=== PATIENT | female | born 1985 | race Hispanic/Latino ===

== ENCOUNTER 2019-10-21 20:18 | Emergency (ER) | payer MEDICAID, OTHER | END 2019-10-21 21:00 | disposition home or self-care (01) | LOC: ERS 20:18 | DX: B02.9 Zoster without complications (principal) | CPT/HCPCS: 99282 ==

== ENCOUNTER 2020-02-01 15:45 | Day surgery (SDC) | payer MEDICAID, OTHER ==
[2020-02-01 16:35] VITALS: BMI 27.8
[2020-02-01 17:17] VITALS: BP 116/63; TEMP 98.8
[2020-02-01] MEDS ORDERED: hydrALAZINE 20 MG/ML VIAL SLOW IVP PRN (17:37)
--- NOTE | 2020-02-01 17:38 | PDOC.FPROB ---
FMR OB H&P: HPI - History of Present Illness Chief Complaint: CTX, Possible LOF Indentification: @ 38.1W EGA by LMP, c/w 10.1W US History of Present Illness: Patient is a 34 y/o at 38.1W EGA by LMP c/w 10.1W US who presents to L& D for evaluation for contractions and possible loss of fluid. Patient states that at 0400 this AM she felt a strong contraction and noticed a small amount of lost fluid. Patient states that the contraction felt similar to her labor contractions on her previous pregnancies, and stated that the loss of fluid was mildly bloody but minimal. However, she stated that she experienced several more episodes of similar loss of fluid throughout the day. Since 0400, patient states that her contractions have occurred Q1H and are getting more painful in nature. Per the patient and chart review, patient's has been complicated by Polyhydramnios (9.4 cm at 34.6W) that has since resolved, and possible LGA. 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 Patient denies loss of movement, fevers, chills, N/V/D, cough, recent travel, known COVID-19 exposure, CUETO, visual disturbances, auditory disturbances, rhinorrhea, epistaxis, chest pain, SOB, dysuria, hematuria, new-onset rashes or lesions, diarrhea, bloody stools or recent trauma. Patient's was present at bedside during the evaluation. Additionally, patient is [place]-speaking only and an buggy runner had to be used for the majority of the evaluation. Primary Care Physician: [facility] - Dr. 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 - Family History Family History: Non-Contributory FMR OB H&P: Medications - Current Home Medications: Medication Instructions Recorded Confirmed Type Vitamin 1 tab PO DAILY 02/01/16 02/01/16 History valACYclovir [ValTRex] 500 mg PO DAILY 02/01/20 02/01/20 History Allergies/Adverse Reactions: Allergies Allergy/AdvReac Type Severity Reaction Status Date / Time No Known Allergies Allergy Verified 02/01/20 16:32 FMR OB H&P: ROS - Review of Systems General: reports: fatigue. denies: fever/chills, recent trauma Eyes: denies: vision changes, double vision, scotomas, floaters ENT: denies: rhinorrhea, frequent nose bleed, ear pain, sore throat Cardiovascular: denies: chest pain, palpitation, edema Respiratory: denies: cough, shortness of breath Gastrointestinal: denies: nausea, vomiting, diarrhea, constipation, bright red blood Genitourinary (Female): reports: vaginal discharge, vaginal bleeding, contractions. denies: dysuria, hematuria, polyuria, vaginal pain, vaginal mass/ sore, vaginal pressure Musculoskeletal: denies: pain, stiffness, arthritis/arthralgias Neurologic: denies: syncope, seizures, loss of counsciousness Integumentary: denies: itching, rash, lesions FMR OB H&P: Vital Signs - Maternal Vital signs: Vital Signs - First Documented Temp Pulse Resp BP Pulse Ox 98.8 F 80 18 116/63 98 02/01/20 16:16 02/01/20 16:16 02/01/20 16:16 02/01/20 16:16 02/01/20 16:16 - Heart Tones Baseline: 130 Variability: moderate Acceleration: present Deceleration: absent [place] contractions every: Q20M FMR OB H&P: A/P - Problem List (1) Advanced maternal age (AMA) in Status: Acute Code(s): [id number] - (2) Status: Acute (3) HSV (herpes simplex virus) infection Status: Acute Code(s): B00.9 - HERPESVIRAL INFECTION, UNSPECIFIED (4) Shingles Status: Acute Code(s): B02.9 - ZOSTER WITHOUT COMPLICATIONS (5) Latent tuberculosis Status: Acute Disposition: Patient is a 34 y/o female at 38.1W EGA by LMP - c/w 10.1W US - who presents to L&D for evaluation of contractions and subjective loss of fluid. 1. Contractions / Possible SROM -Patient's contractions are painful but infrequent, few noted on monitor while on L&D -Patient is [place]-speaking only and true etiology of LOF is unclear -MVSS w/o severe-range pressures -FHTs in the 130s w/ acels -SVE (1645): /-2 -Amniosure: Pending -Plan for additional SVE in 2H followed by Spec Exam 2. SIUP -Adequate dating criteria - appropriate and consistent care throughout -HepB, RPR, GC/CT, HIV - negative -1H GTT: 94 -TSH: 0.42 (Lower Limit of Normal) -All vaccinations up to date 3. HSV Infection -Patient states that she has been taking Valtrex prophylactically since 36W EGA -No active vulvar lesions per the patient and nursing staff 4. Hx of Shingles -Resolved -Will continue to monitor for additional 5. Advanced Maternal Age PCP: JAMESON Olivera Dispo: Patient is currently stable on L&D for a Labor Check. Plan to perform Amniosure, SVE and Spec Exam as per above in 2H. Alter plan as needed and consider IOL based on positive findings. Discussion: Date/Time: 02/01/201737 This H&P was discussed with [] and [] who agree with the above documentation and plan. Addendum - Attending - Attending Attestation Date/Time: 02/01/202149 I personally evaluated the patient and discussed the management with Dr. Martinez. I agree with the History, Examination, Assessment and Plan documented above.
[2020-02-01 18:04] LABS: Amnisure Test No Membranes Rupture (No Rupture)
[2020-02-01 18:05] LABS: Amnisure Internal Control QC ACCEPTABLE (ACCEPTABLE)
--- NOTE | 2020-02-01 19:05 | PDOC.BPN ---
<Trey Silva - Last Filed: 02/01/20 19:00> - Brief Progress Note Pt is a 34 yo who presented for possible SROM and contracton: # Contractions and Possible SROM Amnisure negative. No change on repeat cervical check. Negative sterile speculum exam, no pooling, no fluid leakage with increased abdominal pressure. Category 1 strip. Contractions spaced out. - return precautions given - discharge to home - follow up for eIOL - follow up with PCP as directed # SIUP -Adequate dating criteria - appropriate and consistent care throughout -HepB, RPR, GC/CT, HIV - negative -1H GTT: 94 -TSH: 0.42 (Lower Limit of Normal) -All vaccinations up to date # HSV Infection -Patient states that she has been taking Valtrex prophylactically since 36W EGA -No active vulvar lesions per the patient and on exam # Hx of Shingles -Resolved -Will continue to monitor for additional # Advanced Maternal Age PCP: JAMESON Olivera Dispo: discharge to home <Anderson Golden - Last Filed: 02/01/20 21:52> Addendum - Attending - Attending Attestation Date/Time: 02/01/20 4659 I personally evaluated the patient and discussed the management with Dr. Yang. I agree with the History, Examination, Assessment and Plan documented above.
== END 2020-02-01 19:10 | disposition home health service (06) ==
LOC: L&D/OP 15:45
PROVIDERS: ATTEND Obstetrics & Gynecology
DX: O09.523 Supervision of elderly multigravida, third trimester (principal); O47.1 False labor at or after 37 completed weeks of gestation; O98.513 Other viral diseases complicating pregnancy, third trimester; O98.013 Tuberculosis complicating pregnancy, third trimester; B00.9 Herpesviral infection, unspecified; B02.9 Zoster without complications; Z3A.38 38 weeks gestation of pregnancy
CPT/HCPCS: 84112

== ENCOUNTER 2020-02-01 21:50 | Inpatient (IN) | payer OTHER, SELFPAY ==
[~2020-02-01 21:50] MED LIST: Bupivacaine/Epinephrine 0.25% 30 ML VIAL ONE
[2020-02-01 22:10] VITALS: BMI 27.8
--- NOTE | 2020-02-01 22:35 | PDOC.FPROB ---
FMR OB H&P: HPI - History of Present Illness Chief Complaint: Contractions Indentification: at 38.1 wks by LMP/10 wk sono History of Present Illness: Patient is a 34 y/o at 38.1W EGA by LMP c/w 10.1W US who presents to L& D for evaluation for contractions. She was discharged a few hours ago when evaluated for possible SROM/contractions but pt had no change at the time, negative sterile speculum exam. Pt now complains of contractions every 1-2 mins , painful, denies ROM, bleeding. She does have history of HSV but has been taking anti-virals, no lesions on sterile speculum exam this morning. She would like an epidural. JAMESON - Jarod FMR OB H&P: Current - Care : 4 Para: 3003 Gestational age: 38.1 Due date: 02/15/20 Dating Criteria: LMP c/w 10 wk sono Course/Complications: LGA Fetus, Anemia of , HSV-1 w/o active lesions taking prophylaxis anti -virals, AMA - OB Labs Blood type: O RH: positive Antibody Screen: negative HIV: negative RPR: negative HepBsAg: negative Rubella: immune Quad screen: negative Urine drug screen: not done Gonorrhea: negative Chlamydia: negative Pap Smear: 2019 - NILM 1 hour gtt: 94 GBS: negative H&H: 11.5 Platelets: 220 FMR OB H&P: History - Past Medical History PMH: HSV-1, Latent TB - OB History OB History: Polyhydramnios - resolved; LGA - 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; 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 - Surgical History Sx History: None - Social History Social History: Denies Tobacco, alcohol, drug use - Family History Family History: Non-contributory FMR OB H&P: Medications - Current Home Medications: Medication Instructions Recorded Confirmed Type Vitamin 1 tab PO DAILY 02/01/16 02/01/20 History valACYclovir [ValTRex] 500 mg PO DAILY 02/01/20 02/01/20 History Allergies/Adverse Reactions: Allergies Allergy/AdvReac Type Severity Reaction Status Date / Time No Known Allergies Allergy Verified 02/01/20 22:10 FMR OB H&P: ROS - Review of Systems General: denies: fever/chills, weight/appetite/sleep changes Eyes: denies: eye pain, vision changes ENT: denies: nasal congestion, rhinorrhea Cardiovascular: denies: chest pain, palpitation, edema Respiratory: denies: cough, congestion Gastrointestinal: denies: abdominal pain, indigestion Genitourinary (Female): reports: vaginal discharge, contractions, vaginal pressure Musculoskeletal: denies: pain, stiffness Neurologic: denies: numbness, syncope Integumentary: denies: itching, rash Hematologic/Lymphatic: denies: prolonged or excessive bleeding Psychological: denies: depression, anxiety FMR OB H&P: Vital Signs - Heart Tones Baseline: 130 Variability: moderate Acceleration: present Deceleration: absent Category: category 1 [place] contractions every: q1-3 mins FMR OB H&P: Physical Exam - Physical Exam General: awake, alert and oriented Deviation from normal: painful contractions HEENT: PERRLA, EOMI, MMM Neck: trachea midline, no JVD Heart: RRR, normal S1/S2 General: CTAB, no respiratory distress, good air movement, no wheezing Abdomen: soft, gravid, non-tender Musculoskeletal: pulses present, FROM in all four extremities Neurological: cranial nerves II through XII intact, sensation to pain,touch and proprioception grossly normal Skin: good tugor, capillary refill <2 seconds Lymphatic: no purpura, no petechia Psychiatric: intact recent and remote memory, normal mood and affect - Pelvic Exam SVE: Membranes: intact Presentation: cephalic FMR OB H&P: A/P - Problem List (1) Advanced maternal age (AMA) in Current Visit: No Status: Acute Code(s): [id number] - (2) HSV (herpes simplex virus) infection Current Visit: No Status: Acute Code(s): B00.9 - HERPESVIRAL INFECTION, UNSPECIFIED (3) Latent tuberculosis Current Visit: No Status: Acute (4) Current Visit: No Status: Acute Disposition: Pt is a at 38.1 weeks dated by LMP c/w 10 weeks sono who presents in active labor: # Active Labor # Intrauterine - SVE: , cephalic presentation on exam; Cat 1 strip - q2h checks - epidural desired - labs from earlier today, repeat Type and Screen # Hx of HSV-1 - no lesions on exam - continue prophylactic Valtrex # GBS Negative # Advanced Maternal Age # Hx of Shingles - resolved # Hx of Latent TB Dispo: admit for active labor Discussion: Date/Time: 02/01/202234 This H&P was discussed with Dr. Valle and Dr. Bear who agree with the above documentation and plan. Addendum - Attending - Attending Attestation Date/Time: 02/01/20 8546 I personally evaluated the patient and discussed the management with Dr. Silva I agree with the History, Examination, Assessment and Plan documented above with any addition or exceptions noted below. Presents in active labor. Desires epidural. Will place epidural and AROM.
[2020-02-01] MEDS ORDERED: Lidocaine 1% (PF) 30 ML VIAL SC PRN (22:49)
[2020-02-01] MEDS ORDERED: Methylergonovine 0.2 MG/ML VIAL IM PRN (22:49)
[2020-02-01] MEDS ORDERED: Misoprostol 200 MCG TAB PR PRN (22:49)
[2020-02-01] MEDS ORDERED: Ibuprofen 800 MG TAB PO PRN (22:49)
[2020-02-01] MEDS ORDERED: Carboprost 250 MCG/ML AMP IM PRN (22:49)
[2020-02-01] MEDS ORDERED: hydrALAZINE 20 MG/ML VIAL SLOW IVP PRN (22:51)
[2020-02-01] MEDS ORDERED: Ondansetron PF 4 MG/2 ML Vial IVP PRN (22:51)
[2020-02-01] MEDS ORDERED: Docusate 100 MG CAP PO PRN (22:51)
[2020-02-01] MEDS ORDERED: Promethazine HCl 25 MG/ML VIAL IM PRN (22:51)
[2020-02-01] MEDS ORDERED: Lactated Ringer's 1,000 ML IV SCH (23:00)
[2020-02-01] MEDS ORDERED: Fentanyl 4 mcg/Bup 0.1% Cadd 100 ML ONE (23:03)
[2020-02-02 00:04] LABS: HIV (1/2) Antibody/Antigen Non-Reactive (NonReactive); HIV 1/2 INDEX 0.12 S/CO (<1.00)
[2020-02-02] MEDS ORDERED: Promethazine HCl 25 MG/ML VIAL IM PRN (00:11)
[2020-02-02] MEDS ORDERED: Lactated Ringer's 500 ML IV PRN (00:11)
[2020-02-02] MEDS ORDERED: Ondansetron PF 4 MG/2 ML Vial IVP PRN ×2 (00:11→04:55)
[2020-02-02] MEDS ORDERED: Naloxone HCl 0.4 mg/ml Vial IVP PRN ×2 (00:11)
[2020-02-02] MEDS ORDERED: EPHEDRINE 25 MG/5 ML SYRINGE SLOW IVP PRN (00:11)
[2020-02-02] MEDS ORDERED: Acetaminophen 325 MG TAB PO PRN (00:11)
[2020-02-02] MEDS ORDERED: diphenhydrAMINE 50 MG/ML VIAL IVP PRN (00:11)
[2020-02-02] MEDS ORDERED: Fentanyl 4 mcg/Bupivacaine 0.1% Cassette 100 ML EPIDURAL SCH (00:15)
[2020-02-02] MEDS ORDERED: Communication Order-Pharmacy FS SCH (00:15)
--- NOTE | 2020-02-02 00:16 | PDOC.LDPN ---
Labor & Delivery Progress Note - Subjective Subjective: comfortable - Objective Vital signs reviewed and normal: yes General: NAD, resting Uterine fundus: non tender SVE: FHT: category 1, variability present [place] contractions every: q3 mins AROM: meconium stained fluid - Assessment (1) Advanced maternal age (AMA) in Code(s): [id number] - Current Visit: No Status: Acute (2) HSV (herpes simplex virus) infection Code(s): B00.9 - HERPESVIRAL INFECTION, UNSPECIFIED Current Visit: No Status : Acute (3) Latent tuberculosis Current Visit: No Status: Acute (4) Current Visit: No Status: Acute Plan: continue plan of care -: Pt is a at 38.1 weeks dated by LMP c/w 10 weeks sono who presents in active labor: # Active Labor # Intrauterine - SVE: , cephalic presentation on exam; Cat 1 strip - AROM at 0010 on 02/02/20 - q2h checks - epidural desired # Hx of HSV-1 - no lesions on exam - continue prophylactic Valtrex # GBS Negative # Advanced Maternal Age # Hx of Shingles - resolved # Hx of Latent TB Dispo: admit for active labor
[2020-02-02] MEDS: NS / Oxytocin 40 units/1000ml 1,000 ML IV PRN ×2 (02:36→03:56)
--- NOTE | 2020-02-02 02:55 | PDOC.OPDEL ---
OB Operative/Delivery Note Delivery Dr/Surgeon: Tori/Jarod/Ricardo Pre-Delivery Diagnosis: active labor Procedure/Post Delivery Dx: spontaneous vaginal delivery Anesthesia: epidural - Findings A Sex: female Weight: 3.57 kg - 1 min: 7 - 5 min: 9 - Additional Findings/Plan Placenta delivered: spontaneous Repaired Obstetrical Laceration: none Estimated blood loss: QBL 75 Compilations/Other Findings: Delivering Physician Attending Procedure: Spontaneous Vaginal Delivery Anesthesia: epidural, Local for Repair QBL: 75 ml Pre-op Diagnosis: 1. Term intrauterine in labor 2. AMA 3. Hx of HSV - 1 w/o active lesions 4. Anemia of Post-op Diagnosis: 1. Term intrauterine , delivered 2. Same as Above Indications: A 34 y/o female G4 now P4004 presents in active labor Delivery Note: This is 34 yo F G4 now P4004 @ 38.2 wks who delivered a viable F at 0233 on 02/02/20. Following an uneventful antepartum course, a vigorous F was delivered over an intact perineum in the L occipitoanterior position. Anterior Shoulder and then remainder of the body delivered. No nuchal cord. The head was held down and mouth and nares were bulb suctioned. Cord clamped and cut and cord blood collected. Placenta delivered intact in the Chang presentation with a 3 vessel cord noted. Fundal massage was performed and the fundus was firm. The cervix and vagina were inspected and found to be free of lacerations. Infant went to nursery in good condition for routine care. Apgars were 7/9 at 1 & 5 minutes, respectively. Patient tolerated delivery well and went to after routine recovery/care. Post delivery plan: routine recovery Addendum - Attending - Attending Attestation Date/Time: 02/03/20 0113 I was present for the entire delivery and agree with the above documentation.
[2020-02-02] MEDS ORDERED: Lanolin Ointment 7 GM TUBE TOP PRN (04:55)
[2020-02-02] MEDS ORDERED: Adacel (T-DAP) 0.5 ML SYRINGE IM ONE (04:55)
[2020-02-02] MEDS ORDERED: Milk Of Magnesia 30 ML UDCUP PO PRN (04:55)
[2020-02-02] MEDS ORDERED: hydrALAZINE 20 MG/ML VIAL SLOW IVP PRN (04:55)
[2020-02-02] MEDS ORDERED: Bisacodyl 10 MG SUPP PR PRN (04:55)
[2020-02-02] MEDS ORDERED: NS / Oxytocin 40 units/1000ml 1,000 ML IV SCH (04:55)
[2020-02-02 05:10] LABS: Syphilis Antibody Nonreactive (Nonreactive); Syphilis Antibody Index 0.02 S/CO (<1.00 Non-Reactive)
[2020-02-02 05:11] LABS: HBSAg Index 0.24 S/CO (0-0.99); Hep B Surf Ag Non-Reactive S/CO (NonReactive)
[2020-02-02] MEDS: Ibuprofen 800 MG TAB PO SCH ×3 (06:08→23:01)
--- NOTE | 2020-02-02 06:18 | PDOC.OBPPN ---
FMR OB PN: Obj - Maternal Vital signs: BP: [] HR: [] RR: [] Tmax: [] Pox: []% on [] Wt: [] - Urine output I&O: 01/31/20 02/01/20 02/02/20 06:59 06:59 06:59 Output Total 135 Balance -135 FMR OB PN: Data - Labs Lab results: Laboratory Results - last 24 hr 02/01/20 02/01/20 02/02/20 23:08 23:08 03:42 Syphilis IgG/IgM Ab Hep Bs Antigen Non-Reactive HIV 1&2 Antigen & Ab Non-Reactive Blood Type O POSITIVE Antibody Screen NEGATIVE 02/02/20 03:42 Syphilis IgG/IgM Ab Nonreactive Hep Bs Antigen HIV 1&2 Antigen & Ab Blood Type Antibody Screen FMR OB PN: A/P - Problem List (1) Advanced maternal age (AMA) in Current Visit: No Status: Acute Code(s): [id number] - (2) HSV (herpes simplex virus) infection Current Visit: No Status: Resolved Code(s): B00.9 - HERPESVIRAL INFECTION, UNSPECIFIED (3) Latent tuberculosis Current Visit: No Status: Chronic (4) Current Visit: No Status: Resolved (5) Shingles Current Visit: No Status: Resolved Code(s): B02.9 - ZOSTER WITHOUT COMPLICATIONS Disposition: Patient is a 34 y/o female who delivered a TAGAF via at 0233 on 02/02/20. 1. SIUP, resolved -TAGAF delivered LOP w/ APGARs of 7, 9 -3 vessel cord -No lacerations noted in delivery op-note -HepB, RPR, GC/CT, HIV - negative -1H GTT: 94 -TSH: 0.42 (Lower Limit of Normal) -All vaccinations up to date 2. Hx of HSV Infection -Patient states that she has been taking Valtrex prophylactically since 36W EGA -No active vulvar lesions per the patient and nursing staff 3. Hx of Shingles -Resolved -Will continue to monitor for additional 4. Advanced Maternal Age PCP: PNC - Jarod Dispo: Patient is currently stable on L&D for a Labor Check. Plan to perform Amniosure, SVE and Spec Exam as per above in 2H. Alter plan as needed and consider IOL based on positive findings. Discussion: Date/Time: 02/02/20 0645 This H&P was discussed with [] and [] who agree with the above documentation and plan.
[2020-02-02] MEDS: Ferrous Sulfate 325 MG TAB PO SCH ×2 (08:31→16:43)
[2020-02-02] MEDS: Prenatal Vitamin 1 TAB PO SCH (08:40)
[2020-02-02] MEDS: Docusate Calcium (SURFAK) 240 MG CAP PO SCH ×2 (08:40→23:01)
[2020-02-02] MEDS: valACYclovir 500 MG TAB PO SCH (08:40)
--- NOTE | 2020-02-03 05:37 | PDOC.OBPPN ---
FMR OB PN: Subj - Interval History Hospital Day: 2 Day: 1 Chief Complaint: SIUP, resolved Indentification: Interval History: No acute events overnight FMR OB PN: Obj - Maternal Vital signs: BP: [110/56] HR: [70] RR: [17] Tmax: [98.2] Pox: [99]% on [Room Air] Wt: [--] - Urine output I&O: 02/01/20 02/02/20 02/03/20 06:59 06:59 06:59 Output Total 135 Balance -135 - Lochia Lochia: Scant bleeding, minimal strike-through noted on pad - Pain Management Pain scale: 0 Intervention: oral medication FMR OB PN: Exam - Physical Exam General: NAD, awake, alert and oriented HEENT: normocephalic and atraumatic, PERRLA, EOMI, MMM, conjunctiva clear, no scleral icterus, grossly normal vision, grossly normal hearing, normal nasal mucosa, oropharynx clear, good dention Neck: supple, FROM, trachea midline, no LAD Chest: non-tender to palpation, no lesions Breast: symmetric Heart: RRR, normal S1/S2, pulses present, no edema, other (1/6 systolic murmur noted at left sternal border - likely 2/2 fluid shift) General: CTAB, no respiratory distress, good air movement, no rales/rhonchi, no wheezing, no retractions Abdomen: soft, fundus(cm) (Below level of umbilicus, firm), non-tender, bowel sound present Musculoskeletal: pulses present, FROM in all four extremities, no misalignment/ asymmetry, no atrophy Neurological: sensation to pain,touch and proprioception grossly normal Skin: no rash, capillary refill <2 seconds, no jaundice : bandage intact Lymphatic: no unusual bruising or bleeding, no purpura, no petechia, no LAD Psychiatric: intact recent and remote memory, good judgement and insight, normal mood and affect - Pelvic Exam : normal lochia FMR OB PN: Data - Labs Lab results: Laboratory Results - last 24 hr 02/02/20 03:42 Hep Bs Antigen Non-Reactive FMR OB PN: A/P - Problem List (1) Advanced maternal age (AMA) in Status: Acute Code(s): [id number] - (2) HSV (herpes simplex virus) infection Status: Resolved Code(s): B00.9 - HERPESVIRAL INFECTION, UNSPECIFIED (3) Latent tuberculosis Status: Chronic (4) Status: Resolved (5) Shingles Status: Resolved Code(s): B02.9 - ZOSTER WITHOUT COMPLICATIONS Disposition: Patient is a 34 y/o female who delivered a TAGAF at 38.2W EGA by on 02/01 at 0233, currently recovering on [employer] [facility]. 1. SIUP, Resolved -Patient recovering well on [employer] [facility] - no documented events overnights -QBL: 75 ml -VSS - no severe-range BPs noted -Physical Exam WNL -Lochia appears to be minimal - WNL -Pain controlled with Ibuprofen -Patient intends to breastfeed and supplement with Similac Advanced (Blue) 2. Hx of Latent TB -Per chart review, patient had a positive Quantiferon Gold test -Patient denied previous treatment, unsure if her most recent chest X-Ray revealed any positive findings -Will require referral to [facility] for treatment following DC - patient amenal to ongoing treatment if needed 3. Hx of HSV-1 -No lesions noted on Physical Exam -Will plan to continue prophylactic Valtrex - may DC in outpatient setting 4 Hx of Shingles -No lesions noted on Physical Exam 5. AMA 6. GBS Negative Dispo: Patient has been recovering well on [employer] [facility]. Appropriate support mechanisms in place with spouse, local family. Will plan for DC this AM pending Baby's clinical course. Expected LOS < 12H. Discussion: Date/Time: 02/03/20 9708 This H&P was discussed with [] and [] who agree with the above documentation and plan. Addendum - Attending - Attending Attestation Date/Time: 02/03/20 6369 I personally evaluated the patient and discussed the management with Dr. Martinez I agree with the History, Examination, Assessment and Plan documented above with any addition or exceptions noted below - Patient without complaints. Afebrile VSS. A/P: 1) PPD#1 s/p - doing well. D/c home today.
[2020-02-03 06:33] LABS: Hemoglobin 11.2 g/dL (12.0-16.0); Mean Corpuscular HGB CONC 34.1 g/dL (32.0-36.0); Mean Platelet Volume 8.2 fL (7.4-10.4); Platelet Count 210 thou/uL (130-400); RBC Distribution Width 15.3 % (11.5-14.5); Red Blood Cell (RBC) Count 3.86 mill/uL (4.20-5.40); White Blood Cell (WBC) Count 16.2 thou/uL (4.8-10.8)
[2020-02-03 08:41] VITALS: BP 109/57; TEMP 98.3
[2020-02-03] MEDS: valACYclovir 500 MG TAB PO SCH (09:17)
[2020-02-03] MEDS: Docusate Calcium (SURFAK) 240 MG CAP PO SCH (09:17)
[2020-02-03] MEDS: Ferrous Sulfate 325 MG TAB PO SCH (09:18)
[2020-02-03] MEDS: Prenatal Vitamin 1 TAB PO SCH (09:18)
[2020-02-03] MEDS: Ibuprofen 800 MG TAB PO SCH (09:37)
== END 2020-02-03 12:25 | disposition home or self-care (01) | DRG 806 ==
LOC: L&D/OP 21:50 → L&D 22:51 → 3SW 02-02 05:56
PROVIDERS: ADMIT Family Medicine; ATTEND Family Medicine
PROC: 10E0XZZ Delivery of Products of Conception, External Approach (ICD-10-PCS; principal; 2020-02-01)
PROC: 10907ZC Drainage of Amniotic Fluid, Therapeutic from Products of Conception, Via Natural or Artificial Opening (ICD-10-PCS; 2020-02-01)
DX: O36.63X0 Maternal care for excessive fetal growth, third trimester, not applicable or unspecified (principal); O98.52 Other viral diseases complicating childbirth; Z37.0 Single live birth; O99.02 Anemia complicating childbirth; D64.9 Anemia, unspecified; Z3A.38 38 weeks gestation of pregnancy; B00.9 Herpesviral infection, unspecified; Z86.15 Personal history of latent tuberculosis infection
CPT/HCPCS: 36415; 51702; 84112; 85027; 86780; 86850; 86900; 86901; 87340; 87389; 99285

== ENCOUNTER 2021-12-15 12:12 | Inpatient (IN) | payer MEDICAID, SELFPAY ==
[2021-12-15] MEDS ORDERED: Acetaminophen 500 MG TAB ONE (12:43)
[2021-12-15] MEDS ORDERED: Metoclopramide HCl 10 MG/2 ML VIAL ONE (13:29)
[2021-12-15] MEDS ORDERED: Ondansetron PF 4 MG/2 ML Vial ONE (13:29)
[2021-12-15 13:33] LABS: Hemoglobin 13.2 g/dL (12.0-16.0); Mean Corpuscular Hemoglobin 28.1 pg (27.0-31.0); Mean Corpuscular Volume 85.3 fL (78.0-98.0); Mean Platelet Volume 10.1 fL (7.4-10.4); Platelet Count 82 thou/uL (130-400); RBC Distribution Width 13.2 % (11.5-14.5); Red Blood Cell (RBC) Count 4.68 mill/uL (4.20-5.40)
[2021-12-15 13:48] LABS: Band 35 % (5-11); Lymphocytes 18 % (21-51); MDiff Complete? YES; Monocytes 1 % (0-10); Neutrophil 43 % (42-75); Platelet Morphology Comment Appears Decreased; RBC Morphology Normal; Reactive Lymphocytes 3 % (0-10)
[2021-12-15 14:01] LABS: CRP (Inflammatory) 20.11 mg/dL (= or < 0.5)
[2021-12-15 14:09] LABS: SARS-CoV-2 NAA Rapid Test Not Detected (NotDetected)
[2021-12-15 14:09] LABS: ALT (SGPT) 249 U/L (8-55); AST (SGOT) 282 U/L (5-34); Albumin 3.7 g/dL (3.5-5.0); Alkaline Phosphatase 303 U/L (40-110); Anion Gap 16 mmol/L (10-20); BUN (Urea Nitrogen) 7 mg/dL (7.0-18.7); Bilirubin, Total 0.9 mg/dL (0.2-1.2); Calc. Creatinine Clearance 0 mL/min (70-130); Calcium 8.3 mg/dL (7.8-10.44); Carbon Dioxide 21 mmol/L (22-29); Chloride 99 mmol/L (98-107); Globulin 3.3 g/dL (2.4-3.5); Glucose 104 mg/dL (70-105); Potassium 4.7 mmol/L (3.5-5.1); Sodium 131 mmol/L (136-145)
[2021-12-15 14:41] LABS: MONO NEGATIVE CONTROL ZONE White (Negative) (White); MONO POSITIVE CONTROL Pink Line (Positive) (PINK/RED); Mononucleosis NEGATIVE (NEGATIVE)
[2021-12-15] MEDS ORDERED: Midazolam HCl 2 mg/2 ml Vial ONE (15:00)
[2021-12-15] MEDS ORDERED: SODIUM CHLORIDE 0.9% IVPB SCH (15:00)
[2021-12-15] MEDS ORDERED: Ketorolac Tromethamine 30 MG/ML VIAL IVP SCH (15:00)
[2021-12-15] MEDS ORDERED: ACYCLOVIR SODIUM IVPB SCH (15:00)
[2021-12-15 15:13] LABS: Bacteria/HPF None Seen HPF (None Seen); Bilirubin Negative (Negative); Blood, Urine 2+ (Negative); Clarity Clear (Clear); Glucose, Urine (Dipstick) Normal (Negative); Ketone, Urine Negative (Negative); Leukocyte Negative Leu/uL (Negative); Nitrite Negative (Negative); Pregnancy Test - Urine (BHCG) Negative (Negative); Pregu Control Background? CLEAR/WHITE (CLR/WHITE); Pregu Control Bar Appear? YES (CONTROL BAR); Protein, Urine (Dipstick) 30 mg/dL (Neg-Trace); Specific Gravity 1.017 (1.002-1.036); Specific Gravity, Urine 1.017 (1.002-1.036); WBC/HPF 0-3 HPF (0-3); pH, Urine 6.5 (5.0-9.0)
[2021-12-15] MEDS ORDERED: cefTRIAXone\\ROCEPHIN 1 GM VIAL ONE (15:37)
[2021-12-15] MEDS ORDERED: Ketorolac Tromethamine 30 MG/ML VIAL ONE (15:37)
[2021-12-15 15:54] LABS: CSF Source CSF; Clarity Clear (Clear); Tube # 4
[2021-12-15 15:55] LABS: CSF RBC Count - Manual 0 /cu.mm (None Seen); CSF WBC/NonHematics Count-Man 1 /cu.mm (0-5)
[2021-12-15] MEDS ORDERED: Vancomycin 1 GM/200 ML BAG ONE (16:27)
[2021-12-15 16:38] LABS: Lactic Acid 1.6 mmol/L (0.5-2.2)
[2021-12-15] MEDS ORDERED: Ondansetron PF 4 MG/2 ML Vial IVP PRN (16:41)
[2021-12-15] MEDS ORDERED: Acetaminophen 325 MG TAB PO PRN (16:41)
[2021-12-15] MEDS ORDERED: Ondansetron ODT 4 MG TAB PO PRN (16:41)
[2021-12-15] MEDS ORDERED: Acetaminophen 650 MG Suppository PR PRN (16:41)
[2021-12-15] MEDS ORDERED: Lactated Ringer's 1,000 ML IV SCH (17:00)
[2021-12-15 18:30] VITALS: BMI 28.2
[2021-12-15 18:33] LABS: HBSAg Index 0.27 S/CO (0-0.99); Hep B Surf Ag Non-Reactive S/CO (NonReactive)
[2021-12-15 18:34] LABS: Hep A IgM AB Non-Reactive (NonReactive); Hep A IgM S/CO 0.32 S/CO (0-0.79); Hep C IgG Ab Non-Reactive (NonReactive); Hep C Index 0.05 S/CO (0-0.79)
[2021-12-15 18:35] LABS: HBCM Index 0.09 S/CO (0-0.79); Hepatitis B Core IgM Abs Non-Reactive (NonReactive)
[2021-12-15 19:12] LABS: HIV (1/2) Antibody/Antigen Non-Reactive (NonReactive); HIV 1/2 INDEX 0.18 S/CO (<1.00)
[2021-12-15] MEDS: Ibuprofen 600 MG TAB PO PRN (21:50)
[2021-12-15] MEDS ORDERED: Piperacillin/Tazobactam 3.375 GM in Sodium Chloride 0.9% 100 ML IVPB SCH (23:59)
[2021-12-16] MEDS: Piperacillin/Tazobactam 3.375 GM in Sodium Chloride 0.9% 100 ML IVPB SCH ×3 (04:34→21:10)
[2021-12-16 07:34] LABS: Hemoglobin 12.4 g/dL (12.0-16.0); Mean Corpuscular HGB CONC 33.2 g/dL (32.0-36.0); Mean Corpuscular Hemoglobin 28.3 pg (27.0-31.0); Mean Corpuscular Volume 85.3 fL (78.0-98.0); Mean Platelet Volume 9.3 fL (7.4-10.4); Platelet Count 83 thou/uL (130-400); RBC Distribution Width 13.1 % (11.5-14.5); Red Blood Cell (RBC) Count 4.39 mill/uL (4.20-5.40); White Blood Cell (WBC) Count 6.3 thou/uL (4.8-10.8)
[2021-12-16 07:43] LABS: ALT (SGPT) 194 U/L (8-55); AST (SGOT) 195 U/L (5-34); Albumin 3.2 g/dL (3.5-5.0); Alkaline Phosphatase 265 U/L (40-110); Anion Gap 13 mmol/L (10-20); BUN (Urea Nitrogen) 6 mg/dL (7.0-18.7); Bilirubin, Total 0.8 mg/dL (0.2-1.2); Calc. Creatinine Clearance 146 mL/min (70-130); Calcium 8.1 mg/dL (7.8-10.44); Carbon Dioxide 22 mmol/L (22-29); Chloride 104 mmol/L (98-107); Globulin 2.8 g/dL (2.4-3.5); Glucose 90 mg/dL (70-105); Potassium 3.1 mmol/L (3.5-5.1); Sodium 136 mmol/L (136-145)
[2021-12-16 08:31] LABS: Band 29 % (5-11); Lymphocytes 24 % (21-51); MDiff Complete? YES; Monocytes 2 % (0-10); Neutrophil 44 % (42-75); Platelet Morphology Comment Appears Decreased; Polychromasia SLIGHT = 2-3 cells (100X) (0-2/hpf); Reactive Lymphocytes 1 % (0-10)
[2021-12-16] MEDS: Ibuprofen 600 MG TAB PO PRN ×3 (08:46→21:08)
[2021-12-16] MEDS ORDERED: FLU VACC QS2021-22(6MOS UP)/PF 60 MCG/0.5 ML SYRINGE IM ONE (09:00)
[2021-12-16] MEDS ORDERED: Potassium Chloride 20 MEQ TAB PO SCH (09:00)
[2021-12-16 11:05] LABS: Syphilis Antibody Nonreactive (Nonreactive); Syphilis Antibody Index 0.02 S/CO (<1.00 Non-Reactive)
[2021-12-16] MEDS: Lactated Ringer's 1,000 ML IV SCH ×2 (11:52→21:09)
[2021-12-16 23:40] LABS: SARS-CoV-2 PCR NAA for Saliva Not Detected (NotDetected)
[2021-12-17 05:07] LABS: Hemoglobin 12.4 g/dL (12.0-16.0); Mean Corpuscular HGB CONC 33.7 g/dL (32.0-36.0); Mean Corpuscular Hemoglobin 28.9 pg (27.0-31.0); Mean Corpuscular Volume 85.7 fL (78.0-98.0); Mean Platelet Volume 9.1 fL (7.4-10.4); Platelet Count 96 thou/uL (130-400); RBC Distribution Width 13.2 % (11.5-14.5); Red Blood Cell (RBC) Count 4.29 mill/uL (4.20-5.40); White Blood Cell (WBC) Count 7.2 thou/uL (4.8-10.8)
[2021-12-17 05:21] LABS: ALT (SGPT) 178 U/L (8-55); AST (SGOT) 171 U/L (5-34); Alkaline Phosphatase 287 U/L (40-110); Anion Gap 12 mmol/L (10-20); BUN (Urea Nitrogen) 7 mg/dL (7.0-18.7); Bilirubin, Total 0.6 mg/dL (0.2-1.2); Calc. Creatinine Clearance 157 mL/min (70-130); Calcium 7.9 mg/dL (7.8-10.44); Carbon Dioxide 21 mmol/L (22-29); Chloride 105 mmol/L (98-107); Globulin 2.8 g/dL (2.4-3.5); Glucose 92 mg/dL (70-105); Potassium 3.4 mmol/L (3.5-5.1); Protein, Total 5.8 g/dL (6.0-8.3); Sodium 135 mmol/L (136-145)
[2021-12-17] MEDS ORDERED: Potassium Chloride 20 MEQ TAB PO SCH (05:30)
[2021-12-17 05:50] LABS: Band 25 % (5-11); Lymphocytes 26 % (21-51); MDiff Complete? YES; Monocytes 2 % (0-10); Neutrophil 44 % (42-75); Platelet Morphology Comment Appears Decreased; RBC Morphology Normal; Reactive Lymphocytes 3 % (0-10)
[2021-12-17] MEDS: Piperacillin/Tazobactam 3.375 GM in Sodium Chloride 0.9% 100 ML IVPB SCH ×3 (05:57→20:29)
[2021-12-17] MEDS: Lactated Ringer's 1,000 ML IV SCH (05:59)
[2021-12-17] MEDS: Ibuprofen 600 MG TAB PO PRN ×2 (07:53→18:34)
[2021-12-17 11:16] LABS: ANA Symphony (Qualitative) Negative (Negative); ANA Symphony (Quantitative) 0.3 Ratio (< 0.7 Negative); dsDNA IgG Antibody 0.9 IU/mL (<10 Negative)
[2021-12-18 05:22] LABS: ALT (SGPT) 168 U/L (8-55); AST (SGOT) 147 U/L (5-34); Alkaline Phosphatase 307 U/L (40-110); Anion Gap 10 mmol/L (10-20); BUN (Urea Nitrogen) 8 mg/dL (7.0-18.7); Bilirubin, Total 0.4 mg/dL (0.2-1.2); Calc. Creatinine Clearance 163 mL/min (70-130); Calcium 7.9 mg/dL (7.8-10.44); Carbon Dioxide 23 mmol/L (22-29); Chloride 107 mmol/L (98-107); Globulin 2.7 g/dL (2.4-3.5); Glucose 92 mg/dL (70-105); Potassium 3.6 mmol/L (3.5-5.1); Protein, Total 5.7 g/dL (6.0-8.3); Sodium 136 mmol/L (136-145)
[2021-12-18] MEDS: Piperacillin/Tazobactam 3.375 GM in Sodium Chloride 0.9% 100 ML IVPB SCH (05:26)
[2021-12-18 05:27] LABS: Band 4 % (5-11); Hemoglobin 11.4 g/dL (12.0-16.0); Hypochromia SLIGHT = 6-15 cells (100X) (0-5/hpf); Lymphocytes 38 % (21-51); MDiff Complete? YES; Mean Corpuscular Hemoglobin 28.1 pg (27.0-31.0); Mean Corpuscular Volume 85.1 fL (78.0-98.0); Mean Platelet Volume 8.4 fL (7.4-10.4); Monocytes 4 % (0-10); Neutrophil 52 % (42-75); Platelet Count 144 thou/uL (130-400); Platelet Morphology Comment Appears Adequate; RBC Distribution Width 13.3 % (11.5-14.5); Reactive Lymphocytes 2 % (0-10); Red Blood Cell (RBC) Count 4.08 mill/uL (4.20-5.40); White Blood Cell (WBC) Count 9.6 thou/uL (4.8-10.8)
[2021-12-18] MEDS: Ibuprofen 600 MG TAB PO PRN (08:58)
[2021-12-18 11:15] LABS: EBV VCA IgM <36.0 U/mL (0.0-35.9); Nuclear AG IgG (EBNA) AB <18.0 U/mL (0.0-17.9)
[2021-12-18 11:43] VITALS: BP 109/63; TEMP 98.3
[2021-12-18 14:15] LABS: West Nile Virus IgG Ab - CSF Negative (Negative); West Nile Virus IgM Ab - CSF Negative (Negative)
[2021-12-18 14:39] LABS: QuantiFERON-TB Gold Plus POSITIVE (Negative)
== END 2021-12-18 13:59 | disposition home or self-care (01) | DRG 864 ==
LOC: ERS 12:12 → ERHOLD 15:50 → NEURO 18:02 → OBSVTOIN 12-16 10:49
PROVIDERS: ADMIT Family Medicine; ATTEND Family Medicine
PROC: 009U3ZX Drainage of Spinal Canal, Percutaneous Approach, Diagnostic (ICD-10-PCS; principal; 2021-12-16)
DX: R50.9 Fever, unspecified (principal); E87.1 Hypo-osmolality and hyponatremia; D69.59 Other secondary thrombocytopenia; R74.01 Elevation of levels of liver transaminase levels; B00.1 Herpesviral vesicular dermatitis; Z20.822 Contact with and (suspected) exposure to COVID-19
CPT/HCPCS: 0240U; 36415; 62270; 70450; 71045; 76705; 80053; 80074; 81003; 81015; 81025; 82550; 82945; 82977; 83605; 84145; 84157; 84484; 85025; 86015; 86038; 86140; 86225; 86308; 86480; 86611; 86644; 86645; 86664; 86665; 86757; 86780; 86788; 86789; 87040; 87070; 87086; 87205; 87389; 87529; 87633; 87804; 89051; 90471; 90686; 96365; 96366; 96367; 96368; 96375; 96376; G0008; G0378; J0133; J0696; J1885; J2250; J2405; J2543; J2765; J3370; J3490; J7050; J7120; U0003; U0005